=== PATIENT | female | born 1965 | race Caucasian/White ===

== ENCOUNTER 2023-10-30 07:08 | Day surgery (SDC) | payer OTHER ==
[~2023-10-30] VITALS: Ht 160 cm; Wt 68.0 kg
[2023-10-30] MEDS ORDERED: PROPOFOL 200MG/ 20ML VIAL (DIPRIVAN) IV ONE (08:15)
[2023-10-30] MEDS ORDERED: NS 1000 ML IV.SOLN IV ONE (08:15)
[2023-10-30] MEDS ORDERED: MIDAZOLAM HCL 2 MG/2 ML VIAL (VERSED) ONE (08:22)
[2023-10-30 09:43] VITALS: O2SAT 98
[2023-10-30 11:51] VITALS: BP_SYST 131; PULSE 63; RESP 17
== END 2023-10-30 10:00 | disposition home or self-care (01) ==
LOC: SDS 07:08 → SMU 07:09 → SDS 10:00
PROVIDERS: ATTEND Student in an Organized Health Care Education/Training Program
DX: R14.0 Abdominal distension (gaseous) (principal); K64.8 Other hemorrhoids; K64.4 Residual hemorrhoidal skin tags; K63.89 Other specified diseases of intestine; I10 Essential (primary) hypertension; E78.5 Hyperlipidemia, unspecified; Z79.899 Other long term (current) drug therapy; Z88.0 Allergy status to penicillin; Z87.891 Personal history of nicotine dependence
CPT/HCPCS: 93005; 71046; 45378; G0378; J2250; J2704; J7030